=== PATIENT | male | born 1980 ===

== ENCOUNTER 2018-07-25 00:47 | Emergency (ER) | payer SELFPAY ==
--- NOTE | 2018-07-25 01:55 | Emergency Department Report ---
ED Back Pain/Injury HPI - General Chief Complaint: Back Pain/Injury Stated Complaint: BACK PAIN Time Seen by Provider: 07/25/18 01:40 Source: patient, EMS Limitations: Language Barrier - History of Present Illness Initial Comments: 38-year-old male presents to ED with complaint of back pain. Patient states he was lifting his [id number] daughter when he experienced pain in his right lower back. Denies radiation of pain into the legs, denies numbness or weakness of legs. Patient reports previous history of back injury approximately one year ago. Patient reports pain whenever he moves his right leg, or attempts to sit or stand. Patient currently landed on his stomach, which she states is the most comfortable position. EMS was called, morphine 4 mg were given. MD Complaint: back pain -: hour(s) (5), This evening Similar Symptoms Previously: Yes Place: home Radiation: none Severity: severe Quality: sharp Consistency: intermittent Improves With: immobilization Worsens With: movement, sitting upright Context: while lifting Associated Symptoms: difficulty walking. denies: weakness, numbness, difficulty urinating Treatments Prior to Arrival: other medications (morphine 4 mg) - Related Data Previous Rx's Medication Instructions Recorded Last Taken Type HYDROcodone/APAP 5-325 [[place] 1 each PO Q6HR PRN #10 tablet 07/25/18 Unknown Rx 5/325] Naproxen [Naprosyn] 500 mg PO BID #20 tablet 07/25/18 Unknown Rx methOCARBAMOL [Robaxin TAB] 500 mg PO Q8HR PRN #20 tablet 07/25/18 Unknown Rx predniSONE [Deltasone] 50 mg PO QDAY #5 tab 07/25/18 Unknown Rx Allergies Allergy/AdvReac Type Severity Reaction Status Date / Time No Known Allergies Allergy Verified 11/08/15 06:13 ED Review of Systems ROS: Stated complaint: BACK PAIN Other details as noted in HPI Comment: All other systems reviewed and negative Constitutional: denies: chills, fever Gastrointestinal: denies: abdominal pain Musculoskeletal: back pain Neurological: denies: weakness, numbness, paresthesias ED Past Medical Hx - Past Medical History Previous Medical History?: No - Surgical History Past Surgical History?: No - Social History Smoking Status: Never Smoker - Medications Home Medications: Home Medications Medication Instructions Recorded Confirmed Last Taken Type HYDROcodone/APAP 5-325 [[place] 1 each PO Q6HR PRN #10 tablet 07/25/18 Unknown Rx 5/325] Naproxen [Naprosyn] 500 mg PO BID #20 tablet 07/25/18 Unknown Rx methOCARBAMOL [Robaxin TAB] 500 mg PO Q8HR PRN #20 tablet 07/25/18 Unknown Rx predniSONE [Deltasone] 50 mg PO QDAY #5 tab 07/25/18 Unknown Rx ED Physical Exam - General Limitations: Language Barrier General appearance: alert, in no apparent distress - Head Head exam: Present: atraumatic, normocephalic - Eye Eye exam: Present: normal appearance - ENT ENT exam: Present: mucous membranes moist - Neck Neck exam: Present: normal inspection - Respiratory Respiratory exam: Present: normal lung sounds bilaterally. Absent: respiratory distress - Cardiovascular Cardiovascular Exam: Present: regular rate, normal rhythm - Extremities Exam Extremities exam: Present: normal inspection - Back Exam Back exam: Present: paraspinal tenderness (right lower lumbar), other (pain w/ movement of right leg) - Neurological Exam Neurological exam: Present: alert, oriented X3. Absent: motor sensory deficit (5/5 strength BLE, sensation intact) ED Course Vital Signs 07/25/18 07/25/18 07/25/18 01:24 03:17 03:18 Temperature 98.9 F Pulse Rate 68 Respiratory 20 20 20 Rate Blood Pressure 156/79 Blood Pressure [Right] O2 Sat by Pulse 98 Oximetry 07/25/18 07/25/18 07/25/18 03:21 03:22 03:47 Temperature 98.6 F Pulse Rate 65 Respiratory 20 20 20 Rate Blood Pressure Blood Pressure 137/90 [Right] O2 Sat by Pulse 99 99 Oximetry 07/25/18 07/25/18 03:48 09:02 Temperature 98.0 F Pulse Rate 63 Respiratory 20 18 Rate Blood Pressure Blood Pressure 130/70 [Right] O2 Sat by Pulse Oximetry ED Medical Decision Making - Medical Decision Making 38 yo M w/ acute low back pain after lifting his child. Hx of previous back injury. No neuro deficits on exam. No signs of cauda equina. Pt medicated, feeling much better, and is now able to ambulate slowly. Will d/c at this time. Outpt f/u advised. Return precautions given. - Differential Diagnosis lumbar strain Critical care attestation.: If time is entered above; I have spent that time in minutes in the direct care of this critically ill patient, excluding procedure time. ED Disposition Clinical Impression: Acute lumbar myofascial strain Disposition: TO HOME OR SELFCARE Is pt being admited?: No Condition: Stable Instructions: Muscle Strain (ED), Acute Low Back Pain (ED) Prescriptions: predniSONE [Deltasone] 50 mg PO QDAY #5 tab Naproxen [Naprosyn] 500 mg PO BID #20 tablet HYDROcodone/APAP 5-325 [[place] 5/325] 1 each PO Q6HR PRN #10 tablet PRN Reason: Pain methOCARBAMOL [Robaxin TAB] 500 mg PO Q8HR PRN #20 tablet PRN Reason: Muscle Spasm Referrals: [facility] [Primary Care Provider] - 3-5 Days MARCO JUÁREZ MD [Staff Physician] - as needed Time of Disposition: 05:36 Print Language: HEBREW
[2018-07-25] MEDS ORDERED: DILAUDID IV ONE (01:56)
[2018-07-25] MEDS ORDERED: TORADOL IV ONE (01:56)
[2018-07-25] MEDS ORDERED: NACL 0.9% 1000 ML 1,000 ML IV ONE (01:56)
[2018-07-25] MEDS ORDERED: DECADRON IV ONE (01:56)
[2018-07-25] MEDS ORDERED: VALIUM IV ONE (04:16)
[2018-07-25 09:03] VITALS: BP 130/70
== END 2018-07-25 12:42 | disposition home or self-care (01) ==
LOC: ED 00:47
DX: S39.012A Strain of muscle, fascia and tendon of lower back, initial encounter (principal); X50.0XXA Overexertion from strenuous movement or load, initial encounter; Y93.89 Activity, other specified; Y92.89 Other specified places as the place of occurrence of the external cause; Y99.8 Other external cause status
CPT/HCPCS: 96374; 96375; 99283; J1100; J1170; J1885; J3360; J7030